=== PATIENT | male | born 1970 | race Caucasian/White ===

== ENCOUNTER 2021-05-11 00:45 | Observation (INO) ==
[2021-05-11] MEDS ORDERED: Aspirin 325 MG TABLET PO ONE (01:20)
[2021-05-11 02:31] LABS: Basophils % 0.4 %; Eosinophils # 0.2 K/mcL (0.0-0.6); Eosinophils % 1.7 %; Hematocrit 41.9 % (37.5-50.1); Hemoglobin 13.7 g/dL (12.9-16.9); Immature Granulocytes % 0.3 % (0-4); Lymphocytes # 3.7 K/mcL (0.6-4.6); Lymphocytes % 37.2 %; Mean Corpuscular HGB Conc 32.7 g/dL (31.6-35.5); Mean Corpuscular Hemoglobin 31.4 pg (28.0-33.3); Mean Corpuscular Volume 96.1 fL (83.0-100.0); Mean Platelet Volume 11.6 fL (9.4-12.4); Monocytes # 0.6 K/mcL (0.0-1.3); Monocytes % 6.4 %; Neutrophils # 5.4 K/mcL (1.6-8.9); Platelet Count 240 K/mcL (140-400); Red Blood Count 4.36 M/mcL (4.19-5.50); Red Cell Distribution Width 12.4 % (11.5-14.5); White Blood Count 9.9 K/mcL (4.3-11.1)
[2021-05-11 02:39] LABS: Influenza A PCR Negative (Negative); Influenza B PCR Negative (Negative); Resp. Syncytial Virus PCR Negative (Negative)
[2021-05-11 02:42] LABS: SARS-CoV-2 by PCR (In House) Negative (Negative)
[2021-05-11 02:55] LABS: Alanine Aminotransferase 29 Units/L (7-52); Albumin 4.2 g/dL (3.5-5.7); Albumin/Globulin Ratio 1.6 (1.1-2.2); Alkaline Phosphatase 86 Units/L (34-104); Amylase 37 Units/L (29-103); Aspartate Amino Transferase 23 Units/L (13-39); BUN/Creatinine Ratio 17 (6-26); Bilirubin,Total 0.3 mg/dL (0.3-1.0); Blood Urea Nitrogen 15 mg/dL (6-20); Calcium 9.1 mg/dL (8.6-10.3); Carbon Dioxide 26 mEq/L (23-29); Chloride 105 mEq/L (98-107); Globulin 2.7 g/dL (2.4-3.5); Glucose 151 mg/dL (70-105); Lipase 32 Units/L (11-82); Osmolality,Calculated 294 (280-300); Potassium 3.5 mEq/L (3.5-5.1); Sodium 140 mEq/L (136-145); Total Protein 6.9 g/dL (6.4-8.9); Troponin I < 0.03 ng/mL (< 0.04); eGFR For African Americans > 60 (> 60); eGFR For Non-African Americans > 60 (> 60)
[2021-05-11] MEDS ORDERED: Ondansetron 4 MG/2 ML VIAL IVP PRN (05:36)
[2021-05-11] MEDS ORDERED: Naloxone 0.4 MG/ML INJ IVP PRN (05:36)
[2021-05-11] MEDS ORDERED: Morphine Sulfate 2 MG/ML SYRINGE IVP PRN (05:39)
[2021-05-11] MEDS ORDERED: Acetaminophen 325 MG TABLET PO PRN (06:00)
[2021-05-11] MEDS ORDERED: Dextrose Gel 15 GM/37.5 ML TUBE PO PRN ×2 (06:26)
[2021-05-11] MEDS ORDERED: D5% in Water 1,000 ML IVC PRN (06:26)
[2021-05-11] MEDS ORDERED: *HR* Dextrose 50 % in Water (Syg) 50 ML SYRINGE IVP PRN (06:26)
[2021-05-11] MEDS ORDERED: Nitroglycerin 0.4 MG TAB.SUBL SL PRN (06:33)
[2021-05-11 07:59] LABS: Chol/HDL Ratio 4.3 (0-4.9)
[2021-05-11 08:12] LABS: Thyroid Stimulating Hormone 4.363 mcIU/mL (0.340-5.600)
[2021-05-11] MEDS: Metoprolol XL (24 HR) Succ 25 MG TAB.ER.24H PO SCH (08:34)
[2021-05-11] MEDS: Aspirin Enteric Coated 81 MG Tablet PO SCH (08:34)
[2021-05-11 10:34] LABS: Estimated Average Glucose 131 mg/dl; Hemoglobin A1C 6.2 %
[2021-05-11] MEDS ORDERED: Insulin LISPRO 300 UNITS/3 ML VIAL SUBQ SCH (12:00)
[2021-05-11] MEDS: Nicotine 21 MG PATCH.TD24 TD SCH (13:32)
[2021-05-11] MEDS: *HR* Heparin 5,000 UNIT/ML VIAL SQ SCH ×2 (13:33→22:54)
[2021-05-11 15:48] LABS: Amphetamine Screen,Urine Negative ng/mL (Cutoff=1000); Barbiturate Screen,Urine Negative ng/mL (Cutoff=200); Benzodiazepines Screen,Urine Negative ng/mL (Cutoff=200); Cannabinoid Screen,Urine Negative ng/mL (Cutoff = 50); Cocaine Screen,Urine Negative ng/mL (Cutoff= 300); Opiate Screen,Urine Negative ng/mL (Cutoff=300); Phencyclidine Screen,Urine Negative ng/mL (Cutoff=25)
[2021-05-12] MEDS: *HR* Heparin 5,000 UNIT/ML VIAL SQ SCH ×3 (05:17→20:13)
[2021-05-12 08:01] LABS: Hemoglobin 13.5 g/dL (12.9-16.9); Mean Corpuscular HGB Conc 32.9 g/dL (31.6-35.5); Mean Corpuscular Hemoglobin 31.5 pg (28.0-33.3); Mean Corpuscular Volume 95.8 fL (83.0-100.0); Platelet Count 200 K/mcL (140-400); Red Blood Count 4.28 M/mcL (4.19-5.50); Red Cell Distribution Width 12.5 % (11.5-14.5); White Blood Count 7.4 K/mcL (4.3-11.1)
[2021-05-12 08:15] LABS: Prothrombin Time 11.6 Seconds (9.4-12.1)
[2021-05-12 08:18] LABS: Activated Partial Thrombo Time 33.7 Seconds (26.0-36.0); BUN/Creatinine Ratio 18 (6-26); Blood Urea Nitrogen 14 mg/dL (6-20); Calcium 9.3 mg/dL (8.6-10.3); Carbon Dioxide 28 mEq/L (23-29); Chloride 105 mEq/L (98-107); Glucose 95 mg/dL (70-105); Osmolality,Calculated 288 (280-300); Potassium 4.3 mEq/L (3.5-5.1); Sodium 139 mEq/L (136-145); eGFR For African Americans > 60 (> 60); eGFR For Non-African Americans > 60 (> 60)
[2021-05-12] MEDS: Metoprolol XL (24 HR) Succ 25 MG TAB.ER.24H PO SCH (08:34)
[2021-05-12] MEDS: Aspirin Enteric Coated 81 MG Tablet PO SCH (08:34)
[2021-05-12] MEDS: Nicotine 21 MG PATCH.TD24 TD SCH (08:35)
[2021-05-12] MEDS: *HR* Buprenorphine HCl 8 MG TAB.SUBL SL SCH (09:56)
[2021-05-13] MEDS: *HR* Heparin 5,000 UNIT/ML VIAL SQ SCH (05:03)
[2021-05-13 05:41] LABS: Hemoglobin 13.4 g/dL (12.9-16.9); Mean Corpuscular HGB Conc 31.9 g/dL (31.6-35.5); Mean Corpuscular Hemoglobin 30.5 pg (28.0-33.3); Mean Corpuscular Volume 95.5 fL (83.0-100.0); Mean Platelet Volume 10.9 fL (9.4-12.4); Platelet Count 207 K/mcL (140-400); Red Cell Distribution Width 12.3 % (11.5-14.5)
[2021-05-13 05:56] LABS: BUN/Creatinine Ratio 24 (6-26); Blood Urea Nitrogen 21 mg/dL (6-20); Calcium 9.3 mg/dL (8.6-10.3); Carbon Dioxide 27 mEq/L (23-29); Chloride 104 mEq/L (98-107); Glucose 104 mg/dL (70-105); Osmolality,Calculated 295 (280-300); Potassium 3.9 mEq/L (3.5-5.1); Sodium 141 mEq/L (136-145); eGFR For African Americans > 60 (> 60); eGFR For Non-African Americans > 60 (> 60)
[2021-05-13 06:54] VITALS: BP 114/71; PULSE 74; TEMP 98.2; O2SAT 98
[2021-05-13] MEDS ORDERED: *HR* Midazolam HCl 2 MG/2 ML VIAL ONE (08:15)
[2021-05-13] MEDS ORDERED: *HR* FentaNYL (PF) 100 MCG/2 ML VIAL ONE (08:15)
[2021-05-13] MEDS ORDERED: 0.9 % Sodium Chloride 2,000 ML ONE (08:15)
[2021-05-13] MEDS ORDERED: Heparin 1,000 UNITS/500 mL 500 ML ONE (08:16)
[2021-05-13] MEDS ORDERED: Nitroglycerin 1,000 MCG/5 ML VIAL IV ONE ×2 (08:16→08:49)
[2021-05-13] MEDS ORDERED: ISOVUE-370 200 ML INFUS..BTL ONE (08:16)
[2021-05-13] MEDS ORDERED: *HR* Heparin 10,000 UNIT/10 ML VIAL ONE (08:16)
[2021-05-13] MEDS: Nicotine 21 MG PATCH.TD24 TD SCH (08:27)
[2021-05-13] MEDS: Aspirin Enteric Coated 81 MG Tablet PO SCH (08:28)
[2021-05-13] MEDS: *HR* Buprenorphine HCl 8 MG TAB.SUBL SL SCH (09:43)
[2021-05-13] MEDS: Metoprolol XL (24 HR) Succ 25 MG TAB.ER.24H PO SCH (09:44)
== END 2021-05-13 13:02 | disposition home or self-care (01) ==
LOC: 3BNU 00:45 → EMEROOARM 00:45 → 3BNU 05:32
PROVIDERS: ADMIT Student in an Organized Health Care Education/Training Program; ATTEND Student in an Organized Health Care Education/Training Program